=== PATIENT | male | born 1995 | race Caucasian/White ===

== ENCOUNTER 2020-08-10 00:30 | Emergency (ER) | payer MEDICAID ==
[~2020-08-10] VITALS: Ht 172.7 cm; Wt 71.2 kg
[2020-08-10 00:38] VITALS: BP 122/70
--- NOTE | 2020-08-10 00:40 | NUR ---
SEEN AND EXAMINED BY PONCHO WITH ORDERS AND CARRIED OUT
[2020-08-10] MEDS ORDERED: PHENAZOPYRIDINE 100 MG TAB PO ONE (00:50)
[2020-08-10] MEDS ORDERED: KETOROLAC 30 MG/ML VIAL IM ONE (00:50)
[2020-08-10] MEDS ORDERED: cefTRIAXone 1,000 MG in LIDOCAINE MPF 1% 2.1 ML IM ONE (00:50)
[2020-08-10] MEDS ORDERED: AZITHROMYCIN 1,000 MG in DEXTROSE 5% 500 ML IV ONE (00:50)
[2020-08-10] MEDS ORDERED: AZITHROMYCIN 250 MG TAB PO ONE (01:10)
--- NOTE | 2020-08-10 01:55 | NUR ---
RESULT BACK AND NOTED BY ERMD AND FOR D/C
--- NOTE | 2020-08-10 01:57 | NUR ---
URINE SPICEMEN SENT TO LAB
[2020-08-10 02:05] VITALS: BP 122/70
--- NOTE | 2020-08-10 02:05 | NUR ---
Patient discharged with v/s stable. Written and verbal after care instructions given and explained. Patient alert, oriented and verbalized understanding of instructions. Ambulatory with steady gait. All questions addressed prior to discharge. ID band removed. Patient advised to follow up with PMD. Rx of SUPRAX 400MG given. Patient educated on indication of medication including possible reaction and side effects. Opportunity to ask questions provided and answered.
[2020-08-10 02:06] LABS: APPEARANCE,URINE CLEAR (CLEAR); BILIRUBIN,URINE NEGATIVE (NEGATIVE); BLOOD, URINE TRACE-I (NEGATIVE); COLOR,URINE YELLOW (YELLOW); LEUKOCYTE ESTERASE ,URINE TRACE (NEGATIVE); NITRITE, URINE POSITIVE (NEGATIVE); UGLUCOSE NEGATIVE (NEGATIVE)
[2020-08-10 03:09] LABS: WBC,URINE 20-60 /HPF (0-5)
== END 2020-08-10 02:05 | disposition home or self-care (01) ==
LOC: MED 00:30
DX: R36.9 Urethral discharge, unspecified (principal); F12.90 Cannabis use, unspecified, uncomplicated; Z20.2 Contact with and (suspected) exposure to infections with a predominantly sexual mode of transmission
CPT/HCPCS: 36415; 81001; 87086; 87491; 99283